=== PATIENT | female | born 1975 | race Caucasian/White ===

== ENCOUNTER 2021-04-21 11:46 | Inpatient (IN) | payer OTHER ==
[~2021-04-21] VITALS: Ht 162.6 cm; Wt 58.1 kg
[~2021-04-21 11:46] MED LIST: AMOXICILLIN500 M1 PO; AMOXICILLIN500 MG PO; COLACE 100MG C100 MG PO; FLONASE 0.05% N16 GM; IBU800 MG PO; IBUPROFEN600 MG PO; LORTAB 5-325 M1 EACH PO; PRENATAL VITAM1 EAC8 PO; TYLENOL 500 MG500 MG PO
[2021-04-21 12:27] LABS: HEMOGLOBIN 13.3 gm/dl (12.3-15.3); RED BLOOD COUNT 4.27 M/UL (4.00-5.10); WHITE BLOOD COUNT 18.1 K/UL (4.5-11.0)
[2021-04-21 12:59] LABS: BUN/CREATININE RATIO 23 (0-10)
[2021-04-21] MEDS ORDERED: BUSPIRONE HCL15 MG PO (14:25)
[2021-04-21] MEDS ORDERED: THERAPEUTIC-M1 EACH PO (14:26)
[2021-04-21] MEDS ORDERED: PAROXETINE HCL10 MG PO (14:27)
[2021-04-21] MEDS ORDERED: VIVITROL380 MG SQ (14:28)
[2021-04-21] MEDS ORDERED: MELOXICAM15 MG PO (14:29)
[2021-04-21] MEDS ORDERED: MELATONIN3 MG PO (14:29)
[2021-04-21] MEDS ORDERED: AZO CRANBERRY1 EAC1 PO (14:30)
[2021-04-21] MEDS ORDERED: IBUPROFEN200 M1 PO (14:30)
[2021-04-21] MEDS ORDERED: TYLENOL EXTRA500 MG PO (14:30)
--- NOTE | 2021-04-21 19:12 | NUR ---
Patient called out from her room and stated "Please come unhook my IV so I can go outside and smoke." I went to the room to speak to patient and I told her that the hospital had a no smoking policy and that she was on strict bedrest with bathroom privileges and that Dr. Miller did not want her to go outside because she has been tachycardic. Patient got upset and stated that Dr. Miller hadn't been to see her yet and I explained that she was making her rounds. Patient stated "If you do not let me go outside and smoke, I will light upa damn cigarette right here." I educated the patient about why she could not smoke in the room because of oxygen being in use.
[2021-04-22 06:23] LABS: RED BLOOD COUNT 3.7 M/UL (4.00-5.10); WHITE BLOOD COUNT 13.1 K/UL (4.5-11.0)
[2021-04-22 06:24] LABS: HEMOGLOBIN 11.3 gm/dl (12.3-15.3)
[2021-04-22 06:53] LABS: BUN/CREATININE RATIO 15 (0-10)
[2021-04-23 09:31] LABS: RED BLOOD COUNT 3.56 M/UL (4.00-5.10); WHITE BLOOD COUNT 12.8 K/UL (4.5-11.0)
[2021-04-23 09:57] LABS: BUN/CREATININE RATIO 11 (0-10)
[2021-04-24 03:10] LABS: HBSAG SCREEN Negative (Negative); HEP A AB, IGM Negative (Negative); HEP B CORE AB, IGM Negative (Negative); HEP C VIRUS AB 0.2 (0.0-0.9)
[2021-04-24 07:21] LABS: HEMOGLOBIN 10.9 gm/dl (12.3-15.3); RED BLOOD COUNT 3.69 M/UL (4.00-5.10); WHITE BLOOD COUNT 10.1 K/UL (4.5-11.0)
[2021-04-24 07:48] LABS: BUN/CREATININE RATIO 13 (0-10)
[2021-04-24] MEDS ORDERED: OMNICEF 300 MG300 MG PO (10:13)
== END 2021-04-24 14:31 | disposition home or self-care (01) | DRG 872 ==
LOC: ER1 11:46 → CDU 13:34 → M/S 13:34
PROVIDERS: Emergency Medicine; Physician Assistant; ADMIT Internal Medicine
DX: A41.51 Sepsis due to Escherichia coli [E. coli] (principal); E87.2 Acidosis; N13.6 Pyonephrosis; B96.20 Unspecified Escherichia coli [E. coli] as the cause of diseases classified elsewhere; I95.9 Hypotension, unspecified; F17.210 Nicotine dependence, cigarettes, uncomplicated; Z20.822 Contact with and (suspected) exposure to COVID-19; F19.10 Other psychoactive substance abuse, uncomplicated; F32.A Depression, unspecified; F43.10 Post-traumatic stress disorder, unspecified; R79.89 Other specified abnormal findings of blood chemistry; F41.9 Anxiety disorder, unspecified; Z87.442 Personal history of urinary calculi; Z83.3 Family history of diabetes mellitus; Z82.49 Family history of ischemic heart disease and other diseases of the circulatory system
CPT/HCPCS: 0240U; 36415; 71045; 80048; 80053; 80074; 80076; 80307; 81001; 82550; 82553; 83605; 83690; 83874; 84439; 84443; 84484; 84703; 85025; 87040; 87077; 87086; 87186; 93005; 96374; 99285; J0696; J7030